=== PATIENT | male | born 1945 | race Caucasian/White ===

== ENCOUNTER 2018-04-25 14:10 | Inpatient (IN) | payer MEDICARE, BC, OTHER ==
[2018-04-25 14:54] LABS: HEMATOCRIT 28.5 % (42.0-52.0); HEMOGLOBIN 10.3 g/dl (13.5-17.5); MEAN CORPUSCULAR HEMOGLOBIN 33.4 pg (27.0-33.0); MEAN CORPUSCULAR HGB CONC 36.1 g/dl (32.0-36.5); MEAN CORPUSCULAR VOLUME 92.5 fl (80.0-96.0); PLATELET COUNT, AUTOMATED 329 10^3/uL (150-450); RED BLOOD COUNT 3.08 10^6/uL (4.30-6.10); RED CELL DISTRIBUTION WIDTH 13.2 % (11.5-14.5); WHITE BLOOD COUNT 10.5 10^3/uL (4.0-10.0)
[2018-04-25 14:56] LABS: ADD MANUAL DIFFER YES; DIFF SLIDE NUMBER 254; POS COUNT POS FLAG; POSITIVE DIFF POS FLAG; POSITIVE MORPH POS FLAG
[2018-04-25 15:15] LABS: BEDSIDE GLUCOSE 83 MG/DL (83-110)
[2018-04-25] MEDS: NS 1,000 ML IV ×6 (15:15→18:45)
[2018-04-25 15:42] LABS: LYMPHOCYTES 9 % (16-52); MONOCYTES 7 % (0-8); NEUTROPHILS 84 % (35-75); PLATELET ESTIMATE NORMAL (NORMAL)
[2018-04-25 15:43] LABS: BURR CELLS 3+; TOXIC GRANULATION 2+
[2018-04-25] MEDS: NOREPINEPHRINE BITARTRATE 8 MG in D5W 500 ML IV (16:08)
[2018-04-25] MEDS ORDERED: NOREPINEPHRINE 4 MG/4 ML AMP As Ordered (16:09)
[2018-04-25] MEDS ORDERED: LIDOCAINE 1% MDV 20ML VIAL As Ordered (16:11)
[2018-04-25] MEDS ORDERED: MIDAZOLAM INJ 2 MG/2 ML VIAL (J2250) As Ordered ×2 (16:11→16:12)
[2018-04-25] MEDS ORDERED: FLUMAZENIL 0.5 MG/5 ML VIAL As Ordered (16:17)
[2018-04-25] MEDS ORDERED: VASOPRESSIN INJ 20 UNITS/ML VIAL As Ordered (16:19)
[2018-04-25] MEDS: MIDAZOLAM INJ 2 MG/2 ML VIAL (J2250) IV (16:21)
[2018-04-25 16:22] LABS: AMORPHOUS SEDIMENT SMALL (NEGATIVE); APPEARANCE, URINE CLOUDY (CLEAR); BACTERIA, URINE AUTO NEGATIVE (NEGATIVE); BILIRUBIN, URINE AUTO NEGATIVE (NEGATIVE); BLOOD, URINE BLOOD 1+ (NEGATIVE); COLOR, URINE AMBER (YELLOW); GLUCOSE, URINE (UA) AUTO NEGATIVE (NEGATIVE); KETONE, URINE AUTO NEGATIVE (NEGATIVE); LEUKOCYTE ESTERASE, URINE AUTO NEGATIVE (NEGATIVE); MUCUS, URINE SMALL (NEGATIVE); NITRITE, URINE AUTO NEGATIVE (NEGATIVE); PROTEIN, URINE AUTO NEGATIVE (NEGATIVE); RBC, URINE AUTO 8 /HPF (0-3); SPECIFIC GRAVITY URINE AUTO 1.019 (1.002-1.035); SQUAMOUS EPITHELIAL CELL UR AU 1 /HPF (0-6); WBC, URINE AUTO 17 /HPF (0-3)
[2018-04-25] MEDS: VASOPRESSIN INJ 20 UNITS in NS 500 ML IV (16:22)
[2018-04-25 16:25] LABS: ABG BASE EXCESS -11.2 (-2.0-2.0); ABG HCO3 13.7 MEQ/L (22.0-26.0); ABG O2 SATURATION 84.7 % (95.0-99.0); ABG PARTIAL PRESSURE CO2 27.8 mmHg (35.0-45.0); ABG PARTIAL PRESSURE O2 55.8 mmHg (75.0-100.0); ABG STANDARD HCO3 15.3 MEQ/L (22.0-26.0); ABG TOTAL CO2 14.6 MEQ/L (23.0-31.0); ABG pH (ARTERIAL) 7.312 UNITS (7.350-7.450)
[2018-04-25] MEDS: FLUMAZENIL 0.5 MG/5 ML VIAL IV (16:26)
[2018-04-25] MEDS ORDERED: ALBUTEROL SULFATE 2.5 MG/0.5 ML INH NEB SOLN INH (16:30)
[2018-04-25] MEDS ORDERED: IPRATROPIUM 0.5MG/ALBUTEROL 2.5MG INH SOL UD 3ML (DUONEB)(J7620) NEB (16:30)
[2018-04-25] MEDS ORDERED: KCL 20MEQ IN D5/NS 1000ML 1,000 ML IV (16:32)
[2018-04-25] MEDS ORDERED: D5W/0.9% SODIUM CHLORIDE 1,000 ML IV (16:32)
[2018-04-25] MEDS ORDERED: LEVALBUTEROL 1.25 MG/0.5 ML CONCENTRATE NEB NEB (16:45)
[2018-04-25] MEDS ORDERED: ACETAMINOPHEN TAB 650MG DOSE (2X325MG) PO (16:45)
[2018-04-25] MEDS ORDERED: ONDANSETRON 4MG/2ML VIAL (J2405) IV ×2 (16:45→17:15)
[2018-04-25] MEDS ORDERED: NORCO, ANEXSIA 5/325MG TABLET (HYDROcodone/ACETAMINOPHEN) PO (16:45)
[2018-04-25] MEDS ORDERED: BISACODYL 10 MG SUPP PR (16:45)
[2018-04-25] MEDS ORDERED: PERCOCET 5MG/325MG TAB PO (16:45)
[2018-04-25 16:49] LABS: ACETAMINOPHEN LEVEL 31.7 UG/ML (10.0-30.0); ALBUMIN 1.4 GM/DL (3.2-5.2); ALBUMIN/GLOBULIN RATIO 0.37 (1.00-1.93); ALT/SGPT 28 U/L (12-78); ANION GAP 12 MEQ/L (8-16); AST/SGOT 35 U/L (7-37); BILIRUBIN,DIRECT 0.9 MG/DL (0.0-0.2); BILIRUBIN,TOTAL 1.1 MG/DL (0.2-1.0); BLOOD UREA NITROGEN 74 MG/DL (7-18); CALCIUM LEVEL 7.1 MG/DL (8.8-10.2); CARBON DIOXIDE LEVEL 17 MEQ/L (21-32); CHLORIDE LEVEL 97 MEQ/L (98-107); CREATININE FOR GFR 3.15 MG/DL (0.70-1.30); ETHYL ALCOHOL (ETHANOL) < 0.003 % (0.000-0.010); FREE T4 0.63 NG/DL (0.76-1.46); GLOMERULAR FILTRATION RATE 20.9 (>42); GLUCOSE, FASTING 89 MG/DL (70-100); LIPASE 159 U/L (73-393); MAGNESIUM LEVEL 2.2 MG/DL (1.8-2.4); SALICYLATE LEVEL < 1.7 MG/DL (5.0-30.0); SODIUM LEVEL 126 MEQ/L (136-145); TOTAL PROTEIN 5.2 GM/DL (6.4-8.2); TROPONIN I 0.02 NG/ML (< 0.10)
[2018-04-25 17:01] LABS: LACTIC ACID SEPSIS PROTOCOL 1.3 MMOL/L (0.4-2.0)
[2018-04-25 17:02] LABS: ALKALINE PHOSPHATASE 52 U/L (45-117); CK-MB VALUE MASS 1.7 NG/ML (<3.6); CPK CREATINE PHOSPHOKINASE 38 U/L (39-308); MB/CK RELATIVE INDEX 4.47 (< OR =4); NT-PRO BNP 34448 PG/ML (<125)
[2018-04-25] MEDS ORDERED: BISACODYL 5 MG TAB PO (17:15)
[2018-04-25 17:36] LABS: LDH LACTATE DEHYDROGENASE 176 U/L (87-241)
[2018-04-25] MEDS: VANCOMYCIN HCL 1,000 MG, VIAL MATE ADAPTER 1 EACH in D5W 250 ML IV (17:36)
[2018-04-25] MEDS: HYDROCORTISONE 100 MG/2 ML VIAL (J1720) IV (17:36)
[2018-04-25 17:41] LABS: PH BODY FLUID < 6.500 UNITS (NOT ESTABLISHED); SOURCE, BODY FLUID pH PLEURAL
[2018-04-25 18:25] LABS: AMYLASE, BODY FLUID 5 U/L (NOT ESTABLISHED); CHOLESTEROL, BODY FLUID < 50 MG/DL (NOT ESTABLISHED); SOURCE, BODY FLUID ALBUMIN PLEURAL; SOURCE, BODY FLUID AMYLASE PLEURAL; SOURCE, BODY FLUID CHOL PLEURAL; SOURCE, BODY FLUID GLUCOSE PLEURAL; SOURCE, BODY FLUID TOT PROTEIN PLEURAL; SOURCE, BODY FLUID TRIG PLEURAL; TOTAL PROTEIN, BODY FLUID 4.2 G/DL (NOT ESTABLISHED); TRIGLYCERIDE, BODY FLUID 46 MG/DL (NOT ESTABLISHED)
[2018-04-25] MEDS ORDERED: OXAZEPAM 10 MG CAP PO (18:45)
[2018-04-25 18:54] LABS: LDH, BODY FLUID 7378 U/L (NOT ESTABLISHED); SOURCE, BODY FLUID LDH PLEURAL
[2018-04-25 19:06] LABS: BF MONONUCLEAR CELL % 56.2 % (0-0); BF POLYMORPHONUCLEAR CELL % 43.8 % (0-0)
[2018-04-25 19:08] LABS: BF DIFF IF INDICATED? YES (NO); PLEURAL FL COLOR YELLOW (COLORLESS); RBC BODY FLUID 50 10^3/uL (<2); SOURCE, BODY FLUID PLEURAL; WBC BODY FLUID 85870 /uL (0-10)
[2018-04-25 19:09] LABS: APPEARANCE, BODY FLUID TURBID (CLEAR)
[2018-04-25] MEDS: LEVALBUTEROL 1.25 MG/0.5 ML CONCENTRATE NEB NEB (19:36)
[2018-04-25] MEDS: PERCOCET 5MG/325MG TAB PO (20:42)
[2018-04-25] MEDS: HEPARIN SOD (PORCINE) 5000 UNITS/ML VIAL SC (20:44)
[2018-04-25] MEDS: DOCUSATE SODIUM 100 MG CAP PO (20:44)
[2018-04-25] MEDS: FUROSEMIDE 40 MG/4 ML VIAL (J1940) IV (20:45)
[2018-04-25] MEDS: PIPERACILLIN/TAZOBACTAM SOD 4.5 GM in D5W MINI-BAG PLUS 50 ML IV (21:00)
[2018-04-25 22:32] LABS: HEMATOCRIT 28.3 % (42.0-52.0); HEMOGLOBIN 9.4 g/dl (13.5-17.5); MEAN CORPUSCULAR HEMOGLOBIN 33.9 pg (27.0-33.0); MEAN CORPUSCULAR HGB CONC 33.2 g/dl (32.0-36.5); MEAN CORPUSCULAR VOLUME 102.2 fl (80.0-96.0); RED BLOOD COUNT 2.77 10^6/uL (4.30-6.10); RED CELL DISTRIBUTION WIDTH 14.2 % (11.5-14.5); WHITE BLOOD COUNT 9.6 10^3/uL (4.0-10.0)
[2018-04-25 22:39] LABS: PLATELET COUNT, AUTOMATED 111 10^3/uL (150-450)
[2018-04-25] MEDS: NOREPINEPHRINE BITARTRATE 8 MG in D5W 492 ML IV (23:00)
[2018-04-25 23:06] LABS: ANION GAP 20 MEQ/L (8-16); BLOOD UREA NITROGEN 74 MG/DL (7-18); CARBON DIOXIDE LEVEL 10 MEQ/L (21-32); CHLORIDE LEVEL 96 MEQ/L (98-107); CPK CREATINE PHOSPHOKINASE 200 U/L (39-308); CREATININE FOR GFR 3.33 MG/DL (0.70-1.30); GLOMERULAR FILTRATION RATE 19.6 (>42); GLUCOSE, FASTING 164 MG/DL (70-100); SODIUM LEVEL 126 MEQ/L (136-145); TROPONIN I 0.13 NG/ML (< 0.10)
[2018-04-25 23:07] LABS: CK-MB VALUE MASS 3.6 NG/ML (<3.6); POTASSIUM SERUM 5.9 MEQ/L (3.5-5.1)
[2018-04-25 23:08] LABS: VENOUS HCO3 5.9 MEQ/L (23.0-27.0); VENOUS O2 SATURATION 81.2 % (60.0-80.0); VENOUS PARTIAL PRESSURE O2 77.5 mmHg (30.0-50.0); VENOUS PH 6.733 UNITS (7.330-7.430); VENOUS STANDARD HCO3 4.2 MEQ/L; VENOUS TOTAL CO2 7.2 MEQ/L (24.0-28.0)
[2018-04-25 23:23] LABS: ABG BASE EXCESS -27.5 (-2.0-2.0); ABG HCO3 5.9 MEQ/L (22.0-26.0); ABG O2 SATURATION 81.7 % (95.0-99.0); ABG PARTIAL PRESSURE CO2 37.6 mmHg (35.0-45.0); ABG PARTIAL PRESSURE O2 76.1 mmHg (75.0-100.0); ABG STANDARD HCO3 4.9 MEQ/L (22.0-26.0)
[2018-04-25] MEDS: SODIUM BICARBONATE 150 MEQ in D5W 1,000 ML IV (23:45)
[2018-04-25] MEDS: CALCIUM GLUCONATE 1,000 MG in D5W MINI-BAG PLUS 100 ML IV (23:56)
[2018-04-25] MEDS: SODIUM BICARBONATE 8.4% INJ 50 ML SYRINGE IV (23:56)
[2018-04-25] MEDS: HumuLIN R (REGULAR) INSULIN (NovoLIN R) **100U/ML** PER UNIT IV (23:56)
[2018-04-25] MEDS: DEXTROSE 50% 50 ML SYRINGE IV (23:56)
[2018-04-26] MEDS: LEVALBUTEROL 1.25 MG/0.5 ML CONCENTRATE NEB NEB ×2 (01:53→07:08)
[2018-04-26 01:55] LABS: ABG HCO3 6.7 MEQ/L (22.0-26.0); ABG O2 SATURATION 37.8 % (95.0-99.0); ABG PARTIAL PRESSURE CO2 40.1 mmHg (35.0-45.0); ABG STANDARD HCO3 5.2 MEQ/L (22.0-26.0)
[2018-04-26 01:56] LABS: ABG PARTIAL PRESSURE O2 34.6 mmHg (75.0-100.0); ABG pH (ARTERIAL) 6.844 UNITS (7.350-7.450)
[2018-04-26 02:40] LABS: ANION GAP 24 MEQ/L (8-16); CARBON DIOXIDE LEVEL 9 MEQ/L (21-32); CHLORIDE LEVEL 94 MEQ/L (98-107); SODIUM LEVEL 127 MEQ/L (136-145)
[2018-04-26 02:43] LABS: POTASSIUM SERUM 5.3 MEQ/L (3.5-5.1)
[2018-04-26 06:58] LABS: HEMATOCRIT 26.8 % (42.0-52.0); HEMOGLOBIN 8.8 g/dl (13.5-17.5); MEAN CORPUSCULAR HEMOGLOBIN 33.3 pg (27.0-33.0); MEAN CORPUSCULAR HGB CONC 32.8 g/dl (32.0-36.5); MEAN CORPUSCULAR VOLUME 101.5 fl (80.0-96.0); PLATELET COUNT, AUTOMATED 128 10^3/uL (150-450); RED BLOOD COUNT 2.64 10^6/uL (4.30-6.10); RED CELL DISTRIBUTION WIDTH 14.6 % (11.5-14.5); VENOUS BASE EXCESS -26.8 (-2.0-2.0); VENOUS HCO3 6.1 MEQ/L (23.0-27.0); VENOUS O2 SATURATION 84.4 % (60.0-80.0); VENOUS PARTIAL PRESSURE O2 71.9 mmHg (30.0-50.0); VENOUS PH 6.833 UNITS (7.330-7.430); VENOUS STANDARD HCO3 5.2 MEQ/L; VENOUS TOTAL CO2 7.2 MEQ/L (24.0-28.0); WHITE BLOOD COUNT 12.4 10^3/uL (4.0-10.0)
[2018-04-26 07:01] LABS: ADD MANUAL DIFFER YES; DIFF SLIDE NUMBER 58; POSITIVE MORPH POS FLAG
[2018-04-26 07:19] LABS: BANDS 1 % (< 11); LYMPHOCYTES 8 % (16-52); MONOCYTES 1 % (0-8); NEUTROPHILS 90 % (35-75); PLATELET ESTIMATE DECREASED (NORMAL)
[2018-04-26 07:22] LABS: BURR CELLS 1+; TOXIC GRANULATION 2+
[2018-04-26 08:01] LABS: ALBUMIN 1.4 GM/DL (3.2-5.2); ALBUMIN/GLOBULIN RATIO 0.47 (1.00-1.93); ALKALINE PHOSPHATASE 76 U/L (45-117); ALT/SGPT 932 U/L (12-78); ANION GAP 27 MEQ/L (8-16); AST/SGOT 6437 U/L (7-37); BLOOD UREA NITROGEN 74 MG/DL (7-18); CALCIUM LEVEL 7.1 MG/DL (8.8-10.2); CARBON DIOXIDE LEVEL 7 MEQ/L (21-32); CHLORIDE LEVEL 91 MEQ/L (98-107); CHOLESTEROL LEVEL 76 MG/DL (< 200); CPK CREATINE PHOSPHOKINASE 751 U/L (39-308); CREATININE FOR GFR 3.59 MG/DL (0.70-1.30); GLUCOSE, FASTING 243 MG/DL (70-100); PHOSPHORUS LEVEL 14.1 MG/DL (2.5-4.9); SODIUM LEVEL 125 MEQ/L (136-145); TOTAL PROTEIN 4.4 GM/DL (6.4-8.2); TRIGLYCERIDES LEVEL 85 MG/DL (<150)
[2018-04-26 08:12] LABS: POTASSIUM SERUM 5.9 MEQ/L (3.5-5.1)
[2018-04-26] MEDS: PANTOPRAZOLE 40MG INJ (PROTONIX) (C9113) IV (08:24)
[2018-04-26] MEDS: PIPERACILLIN/TAZOBACTAM SOD 2.25 GM in D5W MINI-BAG PLUS 50 ML IV (08:24)
[2018-04-26] MEDS: HEPARIN SOD (PORCINE) 5000 UNITS/ML VIAL SC (08:24)
[2018-04-26 08:30] LABS: TROPONIN I 1.28 NG/ML (< 0.10)
[2018-04-26 08:34] LABS: LDH LACTATE DEHYDROGENASE 7015 U/L (87-241)
[2018-04-26 08:43] LABS: NT-PRO BNP 129594 PG/ML (<125)
[2018-04-26] MEDS ORDERED: NOREPINEPHRINE 4 MG/4 ML AMP As Ordered (08:50)
[2018-04-26] MEDS: NOREPINEPHRINE BITARTRATE 16 MG in D5W 484 ML IV (08:54)
[2018-04-26] MEDS ORDERED: PANTOPRAZOLE 40MG TAB (PROTONIX) PO (09:00)
[2018-04-26] MEDS ORDERED: MOM 30ML SUSPENSION UDC PO (09:00)
[2018-04-26] MEDS: SODIUM BICARBONATE 150 MEQ in D5W 1,000 ML IV (09:15)
[2018-04-26] MEDS: SODIUM BICARBONATE 8.4% INJ 50 ML SYRINGE IV (09:25)
[2018-04-26] MEDS: VASOPRESSIN INJ 20 UNITS in NS 500 ML IV (09:34)
[2018-04-26] MEDS ORDERED: NOREPINEPHRINE BITARTRATE 16 MG in D5W 484 ML IV (18:00)
== END 2018-04-26 12:21 | disposition expired | DRG 177 ==
LOC: M ED 14:10 → M ED INP 16:32 → M ICU 17:02
PROC: 02HV33Z Insertion of Infusion Device into Superior Vena Cava, Percutaneous Approach (ICD-10-PCS; principal; 2018-04-25)
PROC: 0W9B30Z Drainage of Left Pleural Cavity with Drainage Device, Percutaneous Approach (ICD-10-PCS; 2018-04-25)
DX: J86.9 Pyothorax without fistula (principal); J96.01 Acute respiratory failure with hypoxia; K72.00 Acute and subacute hepatic failure without coma; N17.0 Acute kidney failure with tubular necrosis; J81.1 Chronic pulmonary edema; I42.9 Cardiomyopathy, unspecified; E87.2 Acidosis; R64 Cachexia; E87.1 Hypo-osmolality and hyponatremia; I50.9 Heart failure, unspecified; E87.5 Hyperkalemia; I48.91 Unspecified atrial fibrillation; I11.0 Hypertensive heart disease with heart failure; B95.62 Methicillin resistant Staphylococcus aureus infection as the cause of diseases classified elsewhere; D64.9 Anemia, unspecified; B95.4 Other streptococcus as the cause of diseases classified elsewhere; Z66 Do not resuscitate; D48.7 Neoplasm of uncertain behavior of other specified sites; R91.8 Other nonspecific abnormal finding of lung field; F17.210 Nicotine dependence, cigarettes, uncomplicated; Z95.810 Presence of automatic (implantable) cardiac defibrillator; Z79.01 Long term (current) use of anticoagulants; Z79.899 Other long term (current) drug therapy; Z68.21 Body mass index [BMI] 21.0-21.9, adult